=== PATIENT | male | born 1980 | race Caucasian/White ===

== ENCOUNTER 2016-06-02 09:25 | Inpatient (IN) | payer OTHER ==
[~2016-06-02] VITALS: Ht 152.4 cm; Wt 55.3 kg
[2016-06-02 10:03] LABS: BASOPHIL COUNT 0.1 K/uL (0-0.1); EOSINOPHIL (%) 0 % (0-5); HEMATOCRIT 53.6 % (38.0-50.0); IMMATURE GRANULOCYTE (%) 0.3 % (0.0-0.7); IMMATURE GRANULOCYTE COUNT 0.4 K/uL; LYMPHOCYTE COUNT 1.7 K/uL (1.0-2.8); MCH 32.7 PG (29.0-34.0); MCHC 33.8 G/DL (30.0-36.0); MCV 96.9 FL (86-99); MEAN PLAT.VOLUME 10.5 uM^3 (9.0-12.4); MONOCYTE (%) 6.3 % (3-12); MONOCYTE COUNT 0.7 K/uL (0-0.8); NEUTROPHIL (%) 78.4 % (45-76); NEUTROPHIL COUNT 9.2 K/uL (1.8-6.4); PLATELET COUNT 235 K/uL (156-360); RBC DIS.WIDTH-CV 13.7 % (11.8-14.6); RBC DIS.WIDTH-SD 48.2 % (39-53); RED BLOOD COUNT 5.53 M/uL (4.00-5.50); WHITE BLOOD COUNT 11.7 K/uL (4.1-10.2)
[2016-06-02 10:14] LABS: CHLORIDE 111 mEq/L (99-109); POTASSIUM 5.4 mEq/L (3.7-5.4); SODIUM 155 mEq/L (136-147)
[2016-06-02 10:18] LABS: ANION GAP 23 MEQ/L (2-14)
[2016-06-02 10:19] LABS: TOTAL BILIRUBIN 0.7 mg/dL (0.0-1.0)
[2016-06-02 10:20] LABS: ALKALINE PHOSPHATASE 104 IU/L (3-129); GFR ESTIMATE (CALCULATED) 31 mL/min/
[2016-06-02 10:21] LABS: UREA NITROGEN (BUN) 46 mg/dL (9-23)
[2016-06-02 10:24] LABS: GLUCOSE 776 mg/dL (70-99)
[2016-06-02 11:06] LABS: LIPASE 28 U/L (1.0-51.0)
[2016-06-02 11:13] LABS: ADD MIUA? YES; BILIRUBIN NEGATIVE; BLOOD SMALL; COLOR YELLOW ((YELLOW)); GLUCOSE (STRIP) >=1000; KETONES 40; LEUKOCYTES NEGATIVE; NITRITE NEGATIVE; PROTEIN (STRIP) NEGATIVE; SPECIFIC GRAVITY 1.043 (1.000-1.030); UROBILINOGEN 0.2 MG/DL (0.2-1.0)
[2016-06-02 11:26] LABS: AMORPHOUS URATES CRYSTALS 2+; BACTERIA RARE; CASTS NONE SEEN /LPF; CRYSTALS PRESENT; EPITHELIAL CELLS RARE; MUCUS NONE SEEN; RED BLOOD CELLS 0-5 /HPF (0-5); UCUL ADDED? NO; WHITE BLOOD CELLS 0-5 /HPF (0-5)
[2016-06-02 11:42] LABS: INFLUENZA A VIRAL ANTIGEN NEGATIVE; INFLUENZA B VIRAL ANTIGEN NEGATIVE
[2016-06-02] MEDS ORDERED: MEGESTROL400 MG/10 PO (12:00)
[2016-06-02 12:59] LABS: BASE EXCESS 2.3 mEq/L (-3 to +3); BICARBONATE 22.5 mEq/L (22-26); COMMENTS - BLOOD GASES A+C+; METHEMOGLOBIN 1.4 % (0-1.5); PCO2 38 mm Hg (35-45); PO2 92 mm Hg (80-100); SITE LR; pH 7.38 (7.35-7.45)
[2016-06-02 13:00] LABS: DEVICE ROOM AIR; FI02 0.21 %; TOTAL RESP RATE 16 resp/min
[2016-06-02 16:12] LABS: POINT-OF-CARE USER ID NUTJLF39
[2016-06-02 17:10] VITALS: BP 100/70
[2016-06-02 23:47] VITALS: BP 111/65
[2016-06-03 07:30] LABS: ANION GAP 9 MEQ/L (2-14); CHLORIDE 112 MEQ/L (99-109); GFR ESTIMATE (CALCULATED) > 59 mL/min/; GLUCOSE 168 mg/dL (70-99); POTASSIUM 3.4 MEQ/L (3.7-5.4); SAMPLE HEMOLYSIS CHECK 0; SAMPLE ICTERIC CHECK 0; SAMPLE LIPEMIA CHECK 0; SODIUM 144 MEQ/L (136-147); UREA NITROGEN (BUN) 21 mg/dL (9-23)
[2016-06-03 07:36] VITALS: BP 98/61
[2016-06-03 09:04] LABS: Estimated Average Glucose 223 mg/dL (70-123)
[2016-06-03 09:57] LABS: HEMOGLOBIN A1c (GLYCOHEMOGLOB) 9.4 % HGB (Below 5.7)
[2016-06-03 11:20] LABS: POINT-OF-CARE METER ID UU13113717
[2016-06-03 15:47] LABS: ALKALINE PHOSPHATASE 64 IU/L (3-129); ANION GAP 6 MEQ/L (2-14); CHLORIDE 110 MEQ/L (99-109); CREATINE KINASE 786 IU/L (1-294); GFR ESTIMATE (CALCULATED) > 59 mL/min/; POTASSIUM 3.8 MEQ/L (3.7-5.4); SAMPLE HEMOLYSIS CHECK 0; SAMPLE ICTERIC CHECK 0; SAMPLE LIPEMIA CHECK 0; SODIUM 141 MEQ/L (136-147); TOTAL BILIRUBIN 0.5 MG/DL (0.0-1.0); UREA NITROGEN (BUN) 17 mg/dL (9-23)
[2016-06-03 15:50] LABS: GLUCOSE 254 mg/dL (70-99)
[2016-06-03 16:08] VITALS: BP 94/57
[2016-06-03 16:11] LABS: POINT-OF-CARE METER ID UU13113717
[2016-06-03 23:36] VITALS: BP 108/65
[2016-06-04 06:57] LABS: EOSINOPHIL (%) 1.8 % (0-5); EOSINOPHIL COUNT 0.2 K/uL (0-0.3); HEMATOCRIT 40.3 % (38.0-50.0); IMMATURE GRANULOCYTE (%) 0.4 % (0.0-0.7); LYMPHOCYTE COUNT 1.8 K/uL (1.0-2.8); MCH 33.1 PG (29.0-34.0); MCHC 34.7 G/DL (30.0-36.0); MCV 95.3 FL (86-99); MONOCYTE (%) 4.6 % (3-12); MONOCYTE COUNT 0.4 K/uL (0-0.8); NEUTROPHIL (%) 74.2 % (45-76); RBC DIS.WIDTH-SD 45.4 % (39-53); WHITE BLOOD COUNT 9.5 K/uL (4.1-10.2)
[2016-06-04 06:58] LABS: RED BLOOD COUNT 4.23 M/uL (4.00-5.50)
[2016-06-04 07:29] LABS: ANION GAP 7 MEQ/L (2-14); CHLORIDE 110 MEQ/L (99-109); GFR ESTIMATE (CALCULATED) > 59 mL/min/; GLUCOSE 202 mg/dL (70-99); SAMPLE HEMOLYSIS CHECK 0; SAMPLE ICTERIC CHECK 0; SAMPLE LIPEMIA CHECK 0; SODIUM 143 MEQ/L (136-147); UREA NITROGEN (BUN) 13 mg/dL (9-23)
[2016-06-04 07:30] LABS: POTASSIUM 4.6 MEQ/L (3.7-5.4)
[2016-06-04 07:50] VITALS: BP 96/57
[2016-06-04 08:01] LABS: PLATELET COUNT UNABLE TO REPORT K/uL (156-360)
[2016-06-04 08:02] LABS: PLAT.SUFFICIENCY ADEQUATE; USER ID SDF
[2016-06-04 16:30] VITALS: BP 114/75
[2016-06-04 16:39] LABS: POINT-OF-CARE METER ID UU13113725
[2016-06-04 21:32] LABS: POINT-OF-CARE METER ID UU13113725
[2016-06-04 23:41] VITALS: BP 110/65
[2016-06-05 07:26] LABS: POINT-OF-CARE METER ID UU13113725
[2016-06-05 08:30] VITALS: BP 109/61
[2016-06-05 11:31] LABS: POINT-OF-CARE METER ID UU13113725
[2016-06-05] MEDS ORDERED: GLIPIZIDE10 MG PO (12:20)
[2016-06-05] MEDS ORDERED: JANUVIA100 MG PO (12:20)
[2016-06-05] MEDS ORDERED: METFORMIN HCL500 MG PO (12:20)
[2016-06-05 15:56] LABS: POINT-OF-CARE METER ID UU13113725
[2016-06-05 17:07] VITALS: BP 101/58
== END 2016-06-05 18:30 | disposition home health service (06) | DRG 638 ==
LOC: EME 09:25 → 5EAST 14:13 → EDOF 14:13 → 5EAST 17:05
PROVIDERS: Emergency Medicine; Hospitalist; Internal Medicine
DX: E11.00 Type 2 diabetes mellitus with hyperosmolarity without nonketotic hyperglycemic-hyperosmolar coma (NKHHC) (principal); N17.9 Acute kidney failure, unspecified; E87.0 Hyperosmolality and hypernatremia; E86.0 Dehydration; H91.3 Deaf nonspeaking, not elsewhere classified; Q90.9 Down syndrome, unspecified; Z23 Encounter for immunization
CPT/HCPCS: 36600; 71010; 80048; 80053; 81003; 82009; 82550; 82803; 82948; 83036; 83605; 83690; 83930; 85025; 87502; 99281; 99285; G0008; J1644; J1650; J1815; J7030

== ENCOUNTER 2017-09-01 14:42 | Emergency (ER) | payer OTHER ==
[~2017-09-01] VITALS: Ht 167.6 cm; Wt 62.7 kg
[~2017-09-01 14:42] MED LIST: GLIPIZIDE10 MG PO; JANUVIA100 MG PO; MEGESTROL400 MG/10 PO; METFORMIN HCL500 MG PO
[2017-09-01 15:42] LABS: HEMOGLOBIN 15.6 G/DL (12.5-16.6); MCH 33.8 PG (29.0-34.0); MCHC 34.7 G/DL (30.0-36.0); MCV 97.6 FL (86-99); PLATELET COUNT 155 K/uL (156-360); RED BLOOD COUNT 4.61 M/uL (4.00-5.50); WHITE BLOOD COUNT 3.5 K/uL (4.1-10.2)
[2017-09-01 15:51] LABS: D-DIMER ELISA < 150.00 ng/mLDDU (<230)
[2017-09-01 15:52] LABS: ALBUMIN 3.6 g/dL (3.2-4.8); CHLORIDE 105 mEq/L (99-109); POTASSIUM 4.6 mEq/L (3.7-5.4); SODIUM 140 mEq/L (136-147)
[2017-09-01 15:54] LABS: GLUCOSE 183 mg/dL (70-99); TOTAL PROTEIN 6.1 g/dL (6.4-8.3)
[2017-09-01 15:56] LABS: TOTAL BILIRUBIN 0.4 mg/dL (0.0-1.0)
[2017-09-01 15:58] LABS: ALKALINE PHOSPHATASE 65 IU/L (3-129); CREATININE 1.1 mg/dL (0.6-1.3); GFR ESTIMATE (CALCULATED) > 59 mL/min/ (58.99-99999)
[2017-09-01 15:59] LABS: AST (GOT) 17 IU/L (2-34); UREA NITROGEN (BUN) 18 mg/dL (9-23)
[2017-09-01 16:01] LABS: ALT (GPT) 12 IU/L (3-49); LIPASE 46 U/L (1.0-51.0)
[2017-09-01 16:04] LABS: TROP-I INTERPRETATION NEGATIVE; TROPONIN-I < 0.01 ng/mL (0.0-0.30)
[2017-09-01 17:26] LABS: APPEARANCE CLEAR ((CLEAR)); BILIRUBIN NEGATIVE; BLOOD NEGATIVE; COLOR YELLOW ((YELLOW)); GLUCOSE (STRIP) NEGATIVE; KETONES NEGATIVE; LEUKOCYTES NEGATIVE; NITRITE NEGATIVE; PROTEIN (STRIP) NEGATIVE; SPECIFIC GRAVITY 1.018 (1.000-1.030); UCUL ADDED? NO; UROBILINOGEN 0.2 MG/DL (0.2-1.0)
[2017-09-01 19:21] LABS: TROP-I INTERPRETATION NEGATIVE; TROPONIN-I < 0.01 ng/mL (0.0-0.30)
[2017-09-01] MEDS ORDERED: ZITHROMAX Z-PA250 MG PO ×2 (19:28→19:40)
[2017-09-01 19:44] VITALS: BP 126/74
== END 2017-09-01 19:45 | disposition home or self-care (01) ==
LOC: EME 14:42
PROVIDERS: Physician Assistant
DX: R55 Syncope and collapse (principal); J18.9 Pneumonia, unspecified organism; Q90.9 Down syndrome, unspecified; E11.9 Type 2 diabetes mellitus without complications; Z79.84 Long term (current) use of oral hypoglycemic drugs; H91.3 Deaf nonspeaking, not elsewhere classified
CPT/HCPCS: 71046; 80053; 81003; 83690; 84484; 85027; 85379; 93005; 94640; 99281; 99284